=== PATIENT | male | born 1975 | race Caucasian/White ===

== ENCOUNTER 2017-01-22 11:50 | Emergency (ER) | payer BC ==
--- NOTE | 2017-01-22 12:57 | UC ---
Dizzy HPI HPI Summary: Pt presents with , was driving this morning and felt lightheaded associated with feeling "hot a sweaty". Episode lasted 1-2 minutes. He asked his to pick him up and was subsequently brought to . He did not eat breakfast - but normally doesn't. He has never had anything like this before. Currently, he still feels a little dizzy when walking, but not as bad as earlier - no sweating or feeling warm. Some posterior LT shoulder pain and LBP pain (chronic). Thinks he may have lifted something or slept on it wrong. Feels like a "shock" going from his posterior left shoulder to his lower back. He denies headache, vision changes, tinnitus, SOB, SNYDER, chest pain, N/V/D/C, recent illness. He denies any PMH, does not take any medication, and has no allergies. - History Of Current Complaint Hx Obtained From: Patient Onset/Duration: Sudden Onset Timing: Minutes Severity Initially: Mild Severity Currently: Mild Pain Intensity: 4 Pain Scale Used: 0-10 Numeric Character: Lightheaded Aggravating Factor(s): Position Change Alleviating Factor(s): Lying Down Associated Signs And Symptoms: Positive: Diaphoresis. Negative: Tinnitus, Chest Pain, SOB, Palpitations, Visual Changes <Jarod Diez - Last Filed: 01/22/17 16:04> <Lissy Casas - Last Filed: 01/22/17 19:06> - History Of Current Complaint Chief Complaint: UCBackPain Stated Complaint: BACK PAIN, DIZZINESS Time Seen by Provider: 01/22/17 12:57 - Allergies/Home Medications Allergies/Adverse Reactions: Allergies Allergy/AdvReac Type Severity Reaction Status Date / Time No Known Allergies Allergy Verified 01/22/17 12:30 PMH/Surg Hx/FS Hx/Imm Hx Previously Healthy: Yes - Surgical History Surgical History: Yes Surgery Procedure, Year, and Place: teeth extractions - Social History Occupation: Employed Full-time Lives: With Family Alcohol Use: Occasionally Substance Use Type: None Smoking Status (MU): Never Smoked Tobacco <Jarod Diez - Last Filed: 01/22/17 16:04> Review of Systems Constitutional: Negative Skin: Negative Eyes: Negative ENT: Negative Respiratory: Negative Cardiovascular: Negative Gastrointestinal: Negative Motor: Negative Neurovascular: Negative Musculoskeletal: Other: - Posterior left shoulder pain. LBP. Neurological: Other - Lightheadedness Psychological: Negative Is Patient Immunocompromised?: No All Other Systems Reviewed And Are Negative: Yes <Jarod Diez - Last Filed: 01/22/17 16:04> Physical Exam Triage Information Reviewed: Yes Appearance: Well-Appearing, Well-Nourished Vital Signs: Initial Vital Signs Temp 98.3 F 01/22/17 12:26 Pulse 85 01/22/17 12:26 Resp 18 01/22/17 12:26 BP 126/80 01/22/17 12:26 Pulse Ox 100 01/22/17 12:26 Vital Signs Reviewed: Yes Eyes: Positive: Conjunctiva Clear, Other: - EOMI. No papilledema. No nystagmus. ENT: Positive: Normal ENT inspection, Hearing grossly normal, Pharynx normal, TMs normal, Uvula midline. Negative: Pharyngeal erythema, Nasal congestion, Nasal drainage, TM bulging, TM dull, TM red, Tonsillar swelling, Tonsillar exudate, Sinus tenderness Neck: Positive: Supple, Nontender, No Lymphadenopathy Respiratory: Positive: Chest non-tender, Lungs clear, Normal breath sounds, No respiratory distress, No accessory muscle use Cardiovascular: Positive: RRR, No Murmur, Pulses Normal Abdomen Description: Positive: Nontender, No Organomegaly, Soft Bowel Sounds: Positive: Present Musculoskeletal: Positive: Strength Intact, ROM Intact, No Edema Neurological: Positive: Alert, Other: - AAOx3. CN II-XII grossly intact. Nose to finger intact. Sensations intact throughout. Triceps, biceps, brachioradialis , patellar, and achilles reflexes intact. No gait abnormalities. Negtive pronator drift. Negative Rhomberg. Psychological: Positive: Age Appropriate Behavior Skin: Negative: rashes, significant lesion(s) <Jarod Diez - Last Filed: 01/22/17 16:04> Vital Signs: Initial Vital Signs Temp 98.3 F 01/22/17 12:26 Pulse 85 01/22/17 12:26 Resp 18 01/22/17 12:26 BP 126/80 01/22/17 12:26 Pulse Ox 100 01/22/17 12:26 <Lissy Casas - Last Filed: 01/22/17 19:06> Dizzy Course/Dx - Course Course Of Treatment: EKG sinus rhythm rate 78. POC BG - 95. Neuro exam is WNL. NIH Stroke scale is 0. Likely BPPV vs. Poor diet habits vs. dehydration. Meclinizine QD. Advised to schedule a follow up with PCP within 1 week for further eval. - Differential Dx/Diagnosis Differential Diagnosis/HQI/PQRI: Benign Paroxysmal Positional Vertigo, Coronary Artery Disease, CVA, Meniere's Disease, Transient Ischemic Attack, Vasovagal Reaction Provider Diagnoses: Lightheadedness <Jarod Diez - Last Filed: 01/22/17 16:04> Discharge <Jarod Diez - Last Filed: 01/22/17 16:04> <Lissy Casas - Last Filed: 01/22/17 19:06> - Discharge Plan Condition: Stable Disposition: HOME Prescriptions: Meclizine HCl [Meclizine 25] 25 mg PO DAILY PRN #14 tab PRN Reason: Dizziness Patient Education Materials: Dizziness (ED) Forms: *Work Release Referrals: Roberto Sanon DO [Primary Care Provider] - As Soon As Possible Additional Instructions: 1) Meclizine 25mg once a day as needed for dizziness. 2) Eat a healthy protein rich breakfast low in sugar/carbs. 3) Follow up with your primary physician within 1 week. If you develop any symptoms such as vision changes, headache, slurred speech, nausea, vomiting, or ringing in your ears - please go to the ED. Attestation Statement User Type: Provider - I was available for consult. This patient was seen by the [facility]. The patient was not presented to, seen by, or examined by me. -Julisa <Lissy Casas - Last Filed: 01/22/17 19:06>
[2017-01-22 14:04] VITALS: BP 143/88
== END 2017-01-22 14:00 | disposition home or self-care (01) ==
LOC: UCEAST 11:50
DX: R42 Dizziness and giddiness (principal)
CPT/HCPCS: 93005; 99212; G0463